=== PATIENT | male | born 1975 | race Caucasian/White ===

== ENCOUNTER 2019-08-08 16:32 | Emergency (ER) | payer MEDICARE, OTHER ==
[2019-08-08 16:34] VITALS: PULSE 68
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
[2019-08-08] MEDS ORDERED: LORazepam 0.5 MG Tab PO ONE (16:59)
[2019-08-08 17:17] LABS: CHLORIDE,CL 97 mEq/L (98-106); SODIUM,NA 136 mEq/L (136-145)
[2019-08-08] MEDS ORDERED: Insulin Regular, Human 100 Units/ML 10 ML Vial SUBCUT ONE (17:22)
[2019-08-08] MEDS ORDERED: Insulin Regular, Human 100 Units/ML 3 ML Vial ONE (17:36)
[2019-08-08 17:44] VITALS: BP 153/70
[2019-08-08] MEDS ORDERED: Insulin Regular, Human 100 Units/ML 3 ML Vial SUBCUT SCH (20:00)
== END 2019-08-08 17:43 | disposition home or self-care (01) ==
LOC: CC.ED 16:32
DX: E11.65 Type 2 diabetes mellitus with hyperglycemia (principal); F41.9 Anxiety disorder, unspecified; I10 Essential (primary) hypertension; E11.9 Type 2 diabetes mellitus without complications; E78.5 Hyperlipidemia, unspecified; Z91.030 Bee allergy status; Z79.4 Long term (current) use of insulin; Z79.899 Other long term (current) drug therapy; Z79.82 Long term (current) use of aspirin; Z86.73 Personal history of transient ischemic attack (TIA), and cerebral infarction without residual deficits
CPT/HCPCS: 36415; 80053; 81001; 85025; 96372; 99283; A9270; J1817; 99284

== ENCOUNTER 2020-08-21 00:20 | Emergency (ER) | payer MEDICARE ==
[2020-08-21] MEDS ORDERED: Acetaminophen/HYDROcodone 325-5 MG Tab PO ONE (00:21)
[2020-08-21] MEDS ORDERED: Ketorolac 60 MG/2 ML SDV IM ONE (01:09)
[2020-08-21] MEDS ORDERED: Orphenadrine 60 MG/2 ML Inj IM ONE (01:09)
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
[2020-08-21] MEDS ORDERED: Take Home: Acetaminophen/HYDROcodone 325-5 MG, 2 Tab Pack PO ONE (01:31)
[2020-08-21 02:25] VITALS: BP 136/62; PULSE 69
== END 2020-08-21 01:45 | disposition home or self-care (01) ==
LOC: CC.ED 00:20
DX: S46.911A Strain of unspecified muscle, fascia and tendon at shoulder and upper arm level, right arm, initial encounter (principal); E78.00 Pure hypercholesterolemia, unspecified; I10 Essential (primary) hypertension; E11.9 Type 2 diabetes mellitus without complications; Z86.73 Personal history of transient ischemic attack (TIA), and cerebral infarction without residual deficits; Z91.030 Bee allergy status; Z79.82 Long term (current) use of aspirin; Z79.4 Long term (current) use of insulin; Z79.899 Other long term (current) drug therapy; V89.2XXA Person injured in unspecified motor-vehicle accident, traffic, initial encounter
CPT/HCPCS: 71101; 73030; 96372; 99283; A9270; J1885; J2360

== ENCOUNTER 2021-06-14 01:14 | Emergency (ER) | payer MEDICARE ==
[2021-06-14 01:44] LABS: CHLORIDE,CL 97 mEq/L (98-106); SODIUM,NA 132 mEq/L (136-145)
--- NOTE | 2021-06-14 02:15 | EDM.PDOC ---
ED HPI GENERAL MEDICAL PROBLEM - General Chief Complaint: Neurological Problem Stated Complaint: "Unresponsive Time Seen by Provider: 06/14/21 01:15 Source of Information: Reports: EMS History Limitations: Reports: Altered Mental Status - History of Present Illness INITIAL COMMENTS - FREE TEXT/NARRATIVE: Desean is a 46 year old male who presents to ER due to unresponsiveness. EMS was called to the [facility] for unresponsive male who had fallen off a bar stool. Patient was sitting on a stool, fell backwards and initially was talking and then went unresponsive. Had voiced to his friend "don't call my ". Were then unable to get a response from him so called EMS. Had been drinking for several hours prior. History of aneurysm with right side paralysis so friend questions if he lost his balance on the stool and fell. On presentation to ER, maintaining his airway. On 15 liters of oxygen by NRB mask with oxygen sat of 100%. Blood pressure/pulse stable per EMS. IV infusing. Report pupils were reactive. C-Collar intact. Onset: Today, Sudden Duration: Minutes:, Constant Location: Reports: Generalized - Related Data Allergies Allergy/AdvReac Type Severity Reaction Status Date / Time venom-honey bee Allergy Chest Pain Verified 06/14/21 02:24 [bee venom (honey bee)] Home Meds: Home Meds Insulin Glarg,Human.Rec.Analog [LantUS Solostar] 40 units SUBCUT QAM 09/02/16 [History] Aspirin [Adult Low Dose Aspirin EC] 81 mg PO DAILY 12/27/17 [History] Calcium Carbonate/Vitamin D3 [Calcium 500 + Vit D 200 Caplet] 1 each PO DAILY 12/27/17 [History] Cholecalciferol (Vitamin D3) [Vitamin D3] 2,000 unit PO DAILY 12/27/17 [History] EPINEPHrine [Epipen] 0.3 mg IM ASDIRECTED PRN 12/27/17 [History] Escitalopram Oxalate 10 mg PO DAILY 12/27/17 [History] Insulin Aspart [Novolog] 12 unit SQ TIDMEALS 12/27/17 [History] Lisinopril 5 mg PO BID 12/27/17 [History] atorvaSTATin Calcium [Atorvastatin Calcium] 40 mg PO DAILY 12/27/17 [History] dilTIAZem HCL [Cardizem] 60 mg PO QID 12/27/17 [History] Insulin Aspart [NovoLOG] 12 unit SQ WITHMEALSANDBED 30 Days #1 pen 08/08/19 [Rx] Insulin Glarg,Human.Rec.Analog [Lantus Solostar] 40 unit SUBCUT DAILY 30 Days #1 pen 08/08/19 [Rx] Past Medical History HEENT History: Reports: Impaired Vision Cardiovascular History: Reports: High Cholesterol, Hypertension Respiratory History: Reports: None Gastrointestinal History: Reports: None Genitourinary History: Reports: None Musculoskeletal History: Reports: None Neurological History: Reports: CVA Psychiatric History: Reports: None Endocrine/Metabolic History: Reports: Diabetes, Type II Hematologic History: Reports: None Immunologic History: Reports: None Oncologic (Cancer) History: Reports: None Dermatologic History: Reports: None - Infectious Disease History Infectious Disease History: Reports: None - Past Surgical History Head Surgeries/Procedures: Reports: None HEENT Surgical History: Reports: Other (See Below) Respiratory Surgical History: Reports: Tracheostomy GI Surgical History: Reports: Appendectomy Other Neurological Surgeries/Procedures: right arm is numb and right hand is con tracted. Pt has movement of right leg. Social & Family History - Family History Family Medical History: No Pertinent Family History - Tobacco Use Tobacco Use Status *Q: Unknown Ever Used Tobacco - Caffeine Use Caffeine Use: Reports: Coffee - Living Situation & Occupation Living situation: Reports: with Family Review of Systems - Review of Systems Review Of Systems: Unable To Obtain Reason Not Obtained: unresponsive ED EXAM, GENERAL - Physical Exam Exam: See Below Exam Limited By: Altered Mental Status General Appearance: Obtunded Eye Exam: Bilateral Eye: PERRL Ears: Normal External Exam, Normal TMs Nose: Normal Inspection, Normal Mucosa, No Blood Throat/Mouth: Normal Inspection, Normal Oropharynx Head: Normocephalic Neck: Normal Inspection, Supple, Other (intact c-collar) Respiratory/Chest: No Respiratory Distress, Lungs Clear, Normal Breath Sounds Cardiovascular: Regular Rate, Rhythm GI/Abdominal: Normal Bowel Sounds, Soft Neurological: Unresponsive, Other (Has positive Babinski to left ) Skin Exam: Warm, Dry Course - Vital Signs Last Recorded V/S: Last Vital Signs Temp 96.2 F L 06/14/21 01:19 Pulse 79 06/14/21 02:56 Resp 21 H 06/14/21 02:56 BP 142/82 H 06/14/21 02:56 Pulse Ox 96 06/14/21 02:56 - Orders/Labs/Meds Orders: Active Orders 24 hr Category Date Time Status Cervical Spine wo Cont [CT] Stat Exams 06/14/21 01:26 Taken Chest 1V Frontal [CR] Stat Exams 06/14/21 01:17 Taken Head wo Cont [CT] Stat Exams 06/14/21 01:17 Taken Lumbar Spine 2 or 3V [CR] Stat Exams 06/14/21 02:09 Ordered DRUG SCREEN URINE BIORAD [URCHEM] Stat Lab 06/14/21 01:35 Ordered UA W/MICROSCOPIC [URIN] Stat Lab 06/14/21 01:29 Ordered Labs: Laboratory Tests 06/14/21 06/14/21 06/14/21 Range/Units 01:22 01:23 01:23 WBC 8.8 (4.0-11.0) 10^3/uL RBC 4.89 (4.50-6.00) x10^6/uL Hgb 14.3 (14.0-18.0) g/dL Hct 41.8 L (42.0-52.0) % MCV 85.5 (83.0-97.0) fL MCH 29.2 (27.0-32.0) pg MCHC 34.2 (32.0-36.0) g/dL RDW Coeff of Letty 12.1 (11.0-15.0) % Plt Count 335 (150-400) 10^3/uL Immature Gran % (Auto) 0.1 (0.0-4.9) % Neut % (Auto) 63.3 (41-71) % Lymph % (Auto) 27.0 (24-44) % [place] % (Auto) 6.7 (0-10) % Eos % (Auto) 2.3 (0-6) % Baso % (Auto) 0.6 (0-1) % Neut # (Auto) 5.59 (1.80-8.00) x10^3/uL Lymph # (Auto) 2.38 (0.60-5.00) 10^3/uL [place] # (Auto) 0.59 (0.00-1.50) 10^3/uL Eos # (Auto) 0.20 (0.00-1.50) 10^3/uL Baso # (Auto) 0.05 (0.00-0.50) 10^3/uL Immature Gran # (Auto) 0.01 (0.00-0.49) 10^3/uL Sodium 132 L (136-145) mEq/L Potassium 4.1 (3.5-5.0) mEq/L Chloride 97 L (98-106) mEq/L Carbon Dioxide 25 (21-32) mmol/L BUN 19 H (7-18) mg/dL Creatinine 1.3 (0.7-1.3) mg/dL Est Cr Clr Drug Dosing TNP Estimated GFR (MDRD) 60 (>=60) mL/min Glucose 287 H (75-99) mg/dL POC Glucose 290 H (75-105) mg/dL Calcium 8.4 (8.4-10.1) mg/dL Total Bilirubin 0.3 (0.0-1.0) mg/dL AST 14 L (15-37) U/L ALT 26 (12-78) U/L Alkaline Phosphatase 96 (46-116) U/L Lactate Dehydrogenase 148 (100-190) U/L Creatine Kinase 232 (35-232) U/L Troponin I < 0.017 (0.00-0.06) ng/mL C-Reactive Protein < 0.2 L (0.2-0.8) mg/dL Total Protein 7.6 (6.4-8.2) g/dL Albumin 3.5 (3.4-5.0) g/dL Ethyl Alcohol 158 H (0-3) mg/dL Meds: Medications Discontinued Medications Generic Name Dose Route Start Last Admin Trade Name Freq PRN Reason Stop Dose Admin Ketorolac Tromethamine 30 mg 06/14/21 03:08 06/14/21 03:13 Ketorolac 30 Mg/Ml Sdv IVPUSH 06/14/21 03:09 30 mg ONETIME ONE Administration - Re-Assessments/Exams Free Text/Narrative Re-Assessment/Exam: 06/14/21 02:16 0130- Patient starting to open his eyes. Maintains eye contact. Moaning and states has low back pain. Denies chest pain, shortness of breath or neck pain. No head pain. Vital signs remain normal. Weaning down on oxygen to 2 liters 0135-Over for CT scan of head and neck. Will obtain lumbar views. Log rolled p atmargarita, has reddened area to upper lumbar region, is tender. Conversing. States does not recall events since entering the bar. 0210-Family here. Scans completed. Friend salina was at the bar with him. had not complained of any back pain prior to the fall. Does relate he had pork rinds for supper and did not take his insulin tonight. Lab results are essentially unremarkable. Blood alcohol 158. Denies any drug use. 06/14/21 03:29 CT scan of head and neck show no acute concerns. C-collar removed. chest xray and lumbar xray normal. Did stand patient and transfer to bed. Does continue to have back pain, was given IV Toradol. Has pre-existing right side deficit which he relates now is unchanged tonight. Will monitor neuro checks and vitals for the next 3 hours. 06/14/21 07:13 Patient conversing easily this am once aroused. Continues to complain of back pain. Nurses state he has not been aware of the year during neuro checks but otherwise have been normal. Was able to tell me it is May of 2021 at this time. Discussed possibly getting MRI as yet to know exact cause of unresponsiveness as all tests have been relatively normal. Patient is with family today, does feel stable enough to return home. Just admits to being tired this am. Departure - Departure Time of Disposition: 07:17 Disposition: Home, Self-Care 01 Condition: Fair Clinical Impression: Alcoholic intoxication, Low back pain, Unresponsive episode - Discharge Information *PRESCRIPTION DRUG MONITORING PROGRAM REVIEWED*: No *COPY OF PRESCRIPTION DRUG MONITORING REPORT IN PATIENT FREDDY: No Referrals: PCP,Unknown [Primary Care Provider] - Beronica Tomlinson PA-C [ED Midlevel Provider] - Forms: ED Department Discharge Additional Instructions: 1. Rest 2. Tramadol 50 mg every 6 hours for pain 3. Ice or heat to back 4. MRI on Saturday 5. Follow up with Beronica Tomlinson on Saturday as well for blood pressure check and r echeck of back pain 6. Return sooner if any changes or concerns, increased confusion Sepsis Event Note (ED) - Focused Exam Vital Signs: Vital Signs Temp Pulse Resp BP Pulse Ox 06/14/21 02:56 79 21 H 142/82 H 96 06/14/21 02:23 84 20 130/61 95 06/14/21 01:26 74 18 144/86 H 99 06/14/21 01:19 96.2 F L 71 20 182/109 H 100 - My Orders Last 24 Hours: My Active Orders 06/14/21 01:17 Chest 1V Frontal [CR] Stat Head wo Cont [CT] Stat 06/14/21 01:26 Cervical Spine wo Cont [CT] Stat 06/14/21 01:29 UA W/MICROSCOPIC [URIN] Stat 06/14/21 01:35 DRUG SCREEN URINE BIORAD [URCHEM] Stat 06/14/21 02:09 Lumbar Spine 2 or 3V [CR] Stat - Assessment/Plan Last 24 Hours: My Active Orders 06/14/21 01:17 Chest 1V Frontal [CR] Stat Head wo Cont [CT] Stat 06/14/21 01:26 Cervical Spine wo Cont [CT] Stat 06/14/21 01:29 UA W/MICROSCOPIC [URIN] Stat 06/14/21 01:35 DRUG SCREEN URINE BIORAD [URCHEM] Stat 06/14/21 02:09 Lumbar Spine 2 or 3V [CR] Stat
[2021-06-14 02:57] VITALS: BP 142/82; PULSE 79
[2021-06-14] MEDS ORDERED: Ketorolac 30 MG/ML SDV IVPUSH ONE (03:08)
== END 2021-06-14 09:00 | disposition home or self-care (01) ==
LOC: CC.ED 01:14
DX: F10.129 Alcohol abuse with intoxication, unspecified (principal); M54.5 Low back pain; E78.00 Pure hypercholesterolemia, unspecified; I10 Essential (primary) hypertension; E11.9 Type 2 diabetes mellitus without complications; Y90.6 Blood alcohol level of 120-199 mg/100 ml; Z91.030 Bee allergy status; Z79.4 Long term (current) use of insulin; Z79.82 Long term (current) use of aspirin; Z79.899 Other long term (current) drug therapy
CPT/HCPCS: 36415; 70450; 71045; 72100; 72125; 80053; 80307; 82550; 82947; 83615; 84484; 85025; 86140; 93005; 93010; 96374; 99284; 99285-25; J1885